=== PATIENT | male | born 1985 | race Caucasian/White ===

== ENCOUNTER 2020-11-25 23:45 | Emergency (ER) | payer OTHER ==
[~2020-11-25] VITALS: Ht 177.8 cm; Wt 88.5 kg
[2020-11-25 23:50] VITALS: BP 150/104
[2020-11-26 00:27] VITALS: BP 150/104
--- NOTE | 2020-11-26 00:27 | NUR ---
Patient discharged with v/s stable. Written and verbal after care instructions given and explained. Patient verbalized understanding. Ambulatory with steady gait. All questions addressed prior to discharge. Advised to follow up with PMD.
== END 2020-11-26 00:27 ==
LOC: MED 23:45
DX: F19.10 Other psychoactive substance abuse, uncomplicated (principal); F12.10 Cannabis abuse, uncomplicated; F15.10 Other stimulant abuse, uncomplicated; F14.10 Cocaine abuse, uncomplicated; Z02.89 Encounter for other administrative examinations
CPT/HCPCS: 93005; 99283